=== PATIENT | female | born 1995 ===

== ENCOUNTER → 2017-10-20 | Outpatient (CLI) | payer SELFPAY ==
--- NOTE | 2017-10-20 15:42 | Diagnostic Imaging Report ---
INDICATION: Discharge. FINDINGS: There is an intrauterine gestational sac containing a pole. The crown/rump length measurement is consistent with an approximately 7 week 5 day gestation. The heart rate was recorded at 179 BPM. No definite severiano-gestational sac hemorrhage is seen. In addition, there is a marked abnormal appearance to the endometrial canal. There is significantly heterogeneous mass like echogenicity throughout the endometrium and adjacent to the gestational sac. A small cystic component is present as well. This does raise the question of gestational trophoblastic disease. This is difficult to distinguish from the adjacent myometrium. Adnexal evaluation is without evidence of a discrete adnexal mass. No free fluid is identified. IMPRESSION: There is a single live IUP of approximately 7 weeks 5 days gestational age with an estimated date of confinement sonographically of 06/03/2018. In addition, there is a significant abnormal appearance to the endometrium which is markedly thickened and heterogeneous. This does raise the question of gestational trophoblastic disease, perhaps from a twin . Other etiologies such as choriocarcinoma would be an additional consideration. Beta hCG levels could be obtained for further evaluation. Dictated by: Dictated on workstation # [id number]
== END ==
LOC: RAD 12:58
PROVIDERS: ATTEND Family Medicine
DX: O20.0 Threatened abortion (principal); Z3A.01 Less than 8 weeks gestation of pregnancy
CPT/HCPCS: 76801; 76817

== ENCOUNTER 2017-10-24 15:58 | Emergency (ER) | payer SELFPAY ==
[~2017-10-24] VITALS: Ht 162.6 cm; Wt 68.0 kg
--- OUTSIDE RECORDS SUMMARY | 2017-10-24 16:04 | XMS REPORT ---
Author Author JAHAIRA ALVRAEZ [facility] Address [address] [place] [address] Care Team Providers Care Machine Featheredger And Reducer Name Role Phone FRANDY ALVAREZARDO Unavailable PROBLEMS Unknown Problems ALLERGIES No Known Allergies ENCOUNTERS Encounter Location Date [facility] [address] [id number], [place] [id number] Feb, Dental examination Z01.20 [facility] [address] [id number], [place] [id number] Jan, [facility]01.20 [facility] [address] [id number], [place] [id number] Oct, Dental examination Z01.20 [facility] [address] [id number], [place] [address] Sep, [facility] examination Z01.20 [facility] [address] [id number][place] [phone] Sep, Dental examination Z01.20 [facility] [address] [id number], [place] [id number] Aug, Urine test negative Z32.02 [facility] [address] [address] [id number], [place] [id number] Aug, Dental examination Z01.20 [facility]MA [address] [id number], [place] [address] Aug, Dental examination Z01.20 [facility] [address] [id number] [address] Dec, Acute cystitis with hematuria N30.01 [facility] [address]00565100[place], [place] [address] 15 Dec, 2015 Abnormal urine odor R82.90 and Acute cystitis without hematuria N30.00 [facility] [address] [id number] [address] 27 Nov, 2015 Dysuria R30.0 and Acute cystitis with hematuria N30.01 [facility] [address] [id number], [place] [address] 06 Oct, 2015 Encounter for Depo-Provera contraception Z30.42 [facility] [address] [id number], [place] [address] 13 Jul, 2015 Well woman exam (no gynecological exam) Z00.00 ; Encounter for initial prescription of injectable contraceptive Z30.013 and Encounter for Depo-Provera contraception Z30.42 IMMUNIZATIONS No Known Immunizations SOCIAL HISTORY Never Assessed REASON FOR VISIT Restorative PLAN OF CARE Activity Details Follow Up prn Reason:restorative VITAL SIGNS Height 63 in 2016-11-02 Blood pressure systolic 116 mmHg 2016-11-02 Blood pressure diastolic 76 mmHg 2016-11-02 MEDICATIONS No Known Medications RESULTS No Results PROCEDURES Procedure Date Ordered Result Body Site RESIN COMPOS - 1 SURFACE POSTERIOR Nov 02, 2016 INSTRUCTIONS MEDICATIONS ADMINISTERED No Known Medications MEDICAL (GENERAL) HISTORY Type Description Date Hospitalization History labor and delivery 01/2015
--- OUTSIDE RECORDS SUMMARY | 2017-10-24 16:04 | XMS REPORT ---
Author Author [facility]A [facility]AREZ [facility] Address [address] [place] [address] Care Team Providers Care Lumber Kiln Operator Name Role Phone ALVAREZ, JAHAIRA Unavailable PROBLEMS Unknown Problems ALLERGIES No Known Allergies ENCOUNTERS Encounter Location Date Diagnosis [facility] [address] [facility] [id number] [address] Jul, Contusion of abdominal wall, [facility] [address] [id number], [place] [phone] Feb, [facility] Z01.20 [facility] [address] [id number], [place] [address] Jan, [facility] examination Z01.20 [facility] [address] [id number], [place] [address] Oct, Dental examination Z01.20 [facility] [address] [id number], [place] [phone] Sep, Dental examination Z01.20 [facility] [address] [id number], [place] [phone] Sep, Dental examination Z01.20 [facility] [address] [id number], [place] [id number] Aug, Urine test negative Z32.02 [facility] [address] [address] [id number], [place] [phone] Aug, Dental examination Z01.20 [facility] [address] [id number], [place] [id number] Aug, Dental examination Z01.20 [facility] [place] [address] [facility] [id number], [place] [address] 30 Dec, 2015 Acute cystitis with hematuria N30.01 [facility] [id number] [place] [address] 15 Dec, 2015 Abnormal urine odor R82.90 and Acute cystitis without hematuria N30.00 [facility] [address] [place] [address] Nov, Dysuria R30.0 and Acute cystitis with hematuria N30.01 [facility] [address] [place] [address] 06 Oct, 2015 Encounter for Depo-Provera contraception Z30.42 [facility] [address] [place] [address] Jul, Well woman exam (no gynecological exam) Z00.00 ; Encounter for initial prescription of injectable contraceptive Z30.013 and Encounter for Depo-Provera contraception Z30.42 IMMUNIZATIONS No Known Immunizations SOCIAL HISTORY Never Assessed REASON FOR VISIT restorative PLAN OF CARE Activity Details Follow Up prn Reason:restorative VITAL SIGNS Blood pressure systolic 108 mmHg 2017-02-22 Blood pressure diastolic 68 mmHg 2017-02-22 MEDICATIONS Medication Instructions Dosage Frequency Start Date End Date Duration Status Depo-Provera 150 MG/ML Intramuscular every 3 months 1 ml Jul, Not-Taking RESULTS No Results PROCEDURES Procedure Date Ordered Result Body Site RESIN COMPOS - 2 SURFACES ANTERIOR Feb 22, 2017 INSTRUCTIONS MEDICATIONS ADMINISTERED No Known Medications MEDICAL (GENERAL) HISTORY Type Description Date Hospitalization History labor and delivery 01/2015
--- OUTSIDE RECORDS SUMMARY | 2017-10-24 16:04 | XMS REPORT ---
Author Author JAHAIRA ALVAREZ [facility] Address [address] [place] [address] Care Team Providers Care Switch Crew Supervisor Name Role Phone FRANDY ALVAREZARDO Unavailable PROBLEMS Unknown Problems ALLERGIES No Known Allergies ENCOUNTERS Encounter Location Date Diagnosis [facility] [address] [id number], [place] [id number] Feb, Dental examination Z01.20 [facility] [address] [id number], [place] [phone] Jan, Dental examination Z01.20 [facility] [address] [id number], [place] [id number] Oct, Dental examination Z01.20 [facility] [address] [id number], [place] [id number] Sep, Dental examination Z01.20 [facility] [address] [facility] [id number], [place] [address] Sep, Dental examination Z01.20 [facility] [address] [facility] [id number][place] [id number] Aug, Urine test negative Z32.02 [facility] [address] [address] [id number], [place] [phone] Aug, Dental examination Z01.20 [facility] [address] [id number], [place] [id number] Aug, Dental examination Z01.20 [facility] [address] [id number] [address] Dec, Acute cystitis with hematuria N30.01 [facility] [address]00565100[place], [place] [address] 15 Dec, 2015 Abnormal urine odor R82.90 and Acute cystitis without hematuria N30.[address] [facility] [address] [id number] [address] 27 Nov, 2015 Dysuria R30.0 and Acute cystitis with hematuria N30.01 [facility] [address] [id number], [place] [address] 06 Oct, 2015 Encounter for Depo-Provera contraception Z30.42 [facility] [address]00565100[place], [place] [address] 13 Jul, 2015 Well woman exam (no gynecological exam) Z00.00 ; Encounter for initial prescription of injectable contraceptive Z30.013 and Encounter for Depo-Provera contraception Z30.42 IMMUNIZATIONS No Known Immunizations SOCIAL HISTORY Never Assessed REASON FOR VISIT Restorative PLAN OF CARE Activity Details Follow Up prn Reason:fillings VITAL SIGNS Blood pressure systolic 104 mmHg 2017-01-25 Blood pressure diastolic 71 mmHg 2017-01-25 MEDICATIONS Medication Instructions Dosage Frequency Start Date End Date Duration Status Depo-Provera 150 MG/ML Intramuscular every 3 months 1 ml 13 Jul, 2015 Not-Taking RESULTS No Results PROCEDURES Procedure Date Ordered Result Body Site RESIN COMPOS - 1 SURFACE POSTERIOR Jan 25, 2017 INSTRUCTIONS MEDICATIONS ADMINISTERED No Known Medications MEDICAL (GENERAL) HISTORY Type Description Date Hospitalization History labor and delivery 01/2015
--- OUTSIDE RECORDS SUMMARY | 2017-10-24 16:04 | XMS REPORT ---
Author Author PORSHA FOSTER [facility] Address [address] [place] [address] Care Team Providers Care Ambulatory Technologist Name Role Phone PORSHA FOSTER Unavailable PROBLEMS Unknown Problems ALLERGIES No Known Allergies ENCOUNTERS Encounter Location Date Diagnosis [facility] [address] [facility] [id number], [place] [address] Jul, Contusion of abdominal wall, initial encounter S30.1[facility] [address] [id number], [place] [address] Feb, Dental examination Z01.[address] [facility] [address] [id number], [place] [address] Jan, Dental examination Z01.[address] [facility] [address] [id number], [place] [address] Oct, Dental examination Z01.[address] [facility] [address] [id number], [place] [address] Sep, Dental examination Z01.[address] [facility] [address] [id number], [place] [id number] Sep, Dental examination Z01.[address] [facility] [address] [id number], [place] [id number] Aug, Urine test negative Z32.[address] [facility] [address] [id number], [place] [id number] Aug, Dental examination Z01.20 [facility] [address] [id number], [place] [id number] Aug, Dental examination Z01.20 [facility] [address] [id number], [place] [address] 30 Dec, 2015 Acute cystitis with hematuria N30.01 [facility] [id number] [place] [address] 15 Dec, 2015 Abnormal urine odor R82.90 and Acute cystitis without hematuria N30.00 [facility] [address] [place] [address] Nov, Dysuria R30.0 and Acute cystitis with hematuria N30.01 [facility] [id number] [place] [address] 06 Oct, 2015 Encounter for Depo-Provera contraception Z30.42 [facility] [address] [place] [address] Jul, Well woman exam (no gynecological exam) Z00.00 ; Encounter for initial prescription of injectable contraceptive Z30.013 and Encounter for Depo-Provera contraception Z30.42 IMMUNIZATIONS No Known Immunizations SOCIAL HISTORY Never Assessed REASON FOR VISIT Abdominal pain,having a clear discharge,hit her self in the stomach when moving furniture, MARK daniel, LMP,07/12/2017 PLAN OF CARE Activity Details Follow Up prn Reason: VITAL SIGNS Height 63 in 2017-08-02 Weight 147.6 lbs 2017-08-02 Temperature 98.1 degrees Fahrenheit 2017-08-02 Heart Rate 72 bpm 2017-08-02 Respiratory Rate 16 2017-08-02 BMI 26.14 kg/m2 2017-08-02 Blood pressure systolic 104 mmHg 2017-08-02 Blood pressure diastolic 64 mmHg 2017-08-02 MEDICATIONS Medication Instructions Dosage Frequency Start Date End Date Duration Status Depo-Provera 150 MG/ML Intramuscular every 3 months 1 ml Jul, Not-Taking RESULTS No Results PROCEDURES No Known procedures INSTRUCTIONS MEDICATIONS ADMINISTERED No Known Medications MEDICAL (GENERAL) HISTORY Type Description Date Hospitalization History labor and delivery 01/2015
--- OUTSIDE RECORDS SUMMARY | 2017-10-24 16:05 | XMS REPORT ---
Author LAYLA Gordon [facility] eClinicalWorks Address Unknown Phone Unavailable Care Team Providers Care Private Branch Exchange Installer Name Role Phone LAYLA TAVAREZ CP Unavailable Allergies, Adverse Reactions, Alerts Substance Reaction Event Type N.K.D.A. Info Not Available Non Drug Allergy Problems Problem Type Condition Code Onset Dates Condition Status Assessment Acute cystitis with hematuria N30.01 Active Assessment Dysuria R30.0 Active Medications Medication Code System Code Instructions Start Date End Date Status Dosage Bactrim DS [facility] [address]-75 800-160 MG Orally Twice a day Dec 12, 2015 Dec 15, 2015 1 tablet Depo-Provera [facility] [address]-40 150 MG/ML Intramuscular every 3 months July 29, 2015 1 ml Procedures Procedure Coding System Code Date Office Visit, Est Pt., Level 3 CPT-4 75382 Dec 12, 2015 URINALYSIS, AUTO, W/O SCOPE CPT-4 96311 Dec 12, 2015 Vital Signs Date/Time: Dec 12, 2015 Cardiac Monitoring Heart Rate 82 bpm Weight 136 lbs Height 63 in BMI 24.09 Index Blood Pressure Diastolic 68 mmHg Blood Pressure Systolic 102 mmHg Results Name Result Date Reference Range Unit Abnormality Flag UA LONG DIP (IN HOUSE) ----SARAH Trace 20151212 ----NIT Negative 20151212 ----Exp date 20151212 ----Lot # [id number] ----SG 1.020 20151212 ----KET negative 20151212 ----SUKHWINDER negative 20151212 ----GLU negative 20151212 ----Odor no 20151212 ----pH 6.5 20151212 ----BLO 2+ 20151212 ----URO 1.0 20151212 ----Protein Negative 20151212 ----Lot # [id number] ----Exp date 20151212 ----Clarity clear 20151212 ----Color yellow 20151212 Summary Purpose eClinicalWorks Submission
--- OUTSIDE RECORDS SUMMARY | 2017-10-24 16:05 | XMS REPORT ---
Author Author JAKE GRIJALVA [facility] Address [address] [place] [address] Care Team Providers Care Preventive Medicine Physician Name Role Phone JAKE GRIJALVA Unavailable PROBLEMS Unknown Problems ALLERGIES No Known Allergies ENCOUNTERS Encounter Location Date [facility] [address] [id number], [place] [id number] June, [facility] [address] [place] [address] AVE [id number], [place] [id number] Feb, Dental examination Z01.20 [facility] [address] [id number], [place] [address] Jan, Dental examination Z01.20 [facility] [address] [facility] [address] [id number], [place] [id number] Oct, Dental examination Z01.20 [facility] [address]SH[facility]MA[address] [id number], [place] [address] Sep, Dental examination Z01.20 [facility] [address] [facility] [address] [id number], [place] [id number] Sep, Dental examination Z01.20 [facility] [address] [address] [id number], [place] [id number] Aug, Urine test negative Z32.02 [facility] [address] [address] [id number], [place] [id number] Aug, Dental examination Z01.20 [facility] [address] [id number], [place] [id number] Aug, Dental examination Z01.20 [facility] [address] [facility] [id number], [place] [address] Dec, Acute cystitis with hematuria N30.01 [facility] [address] [id number] [address] 15 Dec, 2015 Abnormal urine odor R82.90 and Acute cystitis without hematuria N30.00 [facility] [address]00565100[place], [place] [address] 27 Nov, 2015 Dysuria R30.0 and Acute cystitis with hematuria N30.01 [facility] [address] [place] [address] 06 Oct, 2015 Encounter for Depo-Provera contraception Z30.42 [facility] [address] [place] [address] 13 Jul, 2015 Well woman exam (no gynecological exam) Z00.00 ; Encounter for initial prescription of injectable contraceptive Z30.013 and Encounter for Depo-Provera contraception Z30.42 IMMUNIZATIONS No Known Immunizations SOCIAL HISTORY Never Assessed REASON FOR VISIT reeval PLAN OF CARE Activity Details Follow Up Restoratives. 3month perio maintenance Reason: VITAL SIGNS Blood pressure systolic 117 mmHg 2016-09-29 Blood pressure diastolic 75 mmHg 2016-09-29 MEDICATIONS Unknown Medications RESULTS No Results PROCEDURES Procedure Date Ordered Result Body Site Dental no charge Sep 29, 2016 INSTRUCTIONS MEDICATIONS ADMINISTERED No Known Medications MEDICAL (GENERAL) HISTORY Type Description Date Hospitalization History labor and delivery 01/2015
--- OUTSIDE RECORDS SUMMARY | 2017-10-24 16:05 | XMS REPORT ---
Author Author [facility]RI[facility] Address [address] [place] [address] Care Team Providers Care Automobile Appraiser Name Role Phone JAKE GRIJALVA Unavailable PROBLEMS Unknown Problems ALLERGIES No Known Allergies ENCOUNTERS Encounter Location Date Diagnosis [facility] [address] [id number], [place] [phone] Feb, Dental examination Z01.20 [facility] [address] [facility] [address] [id number], [place] [id number] Jan, Dental examination Z01.20 [facility] SHARMA[address] [id number], [place] [id number] Oct, Dental examination Z01.20 [facility] [address] [id number], [place] [id number] Sep, Dental examination Z01.20 [facility] [address] [facility] [address] [id number], [place] [id number] Sep, Dental examination Z01.[address] [id number], [place] [id number] Aug, Urine test negative Z32.02 [facility] SH[address] [id number], [place] [id number] Aug, Dental examination Z01.[address] [id number], [place] [id number] Aug, Dental examination Z01.20 [facility] [address] [facility] [id number], [place] [address] 30 Dec, 2015 Acute cystitis with hematuria N30.01 [facility] [address] [id number], [place] [address] 15 Dec, 2015 Abnormal urine odor R82.90 and Acute cystitis without hematuria N30.00 [facility] [address] [facility] [id number], [place] [address] 27 Nov, 2015 Dysuria R30.0 and Acute cystitis with hematuria N30.01 [facility] [address] [id number], [place] [address] 06 Oct, 2015 Encounter for Depo-Provera contraception Z30.42 [facility] [address] [id number], [place] [address] 13 Jul, 2015 Well woman exam (no gynecological exam) Z00.00 ; Encounter for initial prescription of injectable contraceptive Z30.013 and Encounter for Depo-Provera contraception Z30.42 IMMUNIZATIONS No Known Immunizations SOCIAL HISTORY Never Assessed REASON FOR VISIT ramón/prophy PLAN OF CARE Activity Details Follow Up 1.5hr SRP w/o anesthetic Reason: VITAL SIGNS Blood pressure systolic 109 mmHg 2016-08-17 Blood pressure diastolic 68 mmHg 2016-08-17 MEDICATIONS No Known Medications RESULTS No Results PROCEDURES Procedure Date Ordered Result Body Site COMP ORAL EVALUATION - NEW/EST PT August 17, 2016 BITEWINGS - FOUR FILMS August 17, 2016 INSTRUCTIONS MEDICATIONS ADMINISTERED No Known Medications MEDICAL (GENERAL) HISTORY Type Description Date Hospitalization History labor and delivery 01/2015
--- OUTSIDE RECORDS SUMMARY | 2017-10-24 16:05 | XMS REPORT ---
Author Author JAKE GRIJALVA [facility] Address [address] [place] [address] Care Team Providers Care Air Conditioning Unit Tester Name Role Phone JAKE GRIJALVA Unavailable PROBLEMS Unknown Problems ALLERGIES No Known Allergies ENCOUNTERS Encounter Location Date Diagnosis [facility] [address] [id number] [id number] Feb, Dental examination Z01.20 [facility] [address] [facility] [address] [id number] [phone] Jan, Dental examination Z01.20 [facility] [address] [id number] [phone] Oct, [facility]01.[facility] [id number] [id number] Sep, Dental examination Z01.20 [facility] [address] [facility] [address] [id number] [id number] Sep, Dental examination Z01.[address] [id number] [id number] Aug, Urine test negative Z32.02 [facility] [id number][place] [id number] Aug, Dental examination Z01.[address] [id number], [place] [id number] Aug, Dental examination Z01.20 [facility] [address] [facility] [id number] [address] 30 Dec, 2015 Acute cystitis with hematuria N30.01 [facility] [address] [id number], [place] [address] 15 Dec, 2015 Abnormal urine odor R82.90 and Acute cystitis without hematuria N30.00 [facility] [address] [facility] [id number], [place] [address] 27 Nov, 2015 Dysuria R30.0 and Acute cystitis with hematuria N30.01 [facility] [address] [id number], [place] [address] 06 Oct, 2015 Encounter for Depo-Provera contraception Z30.42 [facility] [address] [id number] [address] 13 Jul, 2015 Well woman exam (no gynecological exam) Z00.00 ; Encounter for initial prescription of injectable contraceptive Z30.013 and Encounter for Depo-Provera contraception Z30.42 IMMUNIZATIONS No Known Immunizations SOCIAL HISTORY Never Assessed REASON FOR VISIT SRP PLAN OF CARE Activity Details Follow Up 4-6week re-eval. Restoratives Reason: VITAL SIGNS Blood pressure systolic 101 mmHg 2016-08-19 Blood pressure diastolic 66 mmHg 2016-08-19 MEDICATIONS No Known Medications RESULTS No Results PROCEDURES Procedure Date Ordered Result Body Site Periodontal scaling and root August 19, 2016 Periodontal scaling and root August 19, 2016 Periodontal scaling and root August 19, 2016 Periodontal scaling and root August 19, 2016 INSTRUCTIONS MEDICATIONS ADMINISTERED No Known Medications MEDICAL (GENERAL) HISTORY Type Description Date Hospitalization History labor and delivery 01/2015
--- OUTSIDE RECORDS SUMMARY | 2017-10-24 16:05 | XMS REPORT ---
Author Author KARTHIKEYAN GREEN [facility] e[employer] Address Unknown Phone Unavailable Care Team Providers Care Lumber Marker Name Role Phone KARTHIKEYAN GREEN CP Unavailable Allergies, Adverse Reactions, Alerts Substance Reaction Event Type N.K.D.A. Info Not Available Non Drug Allergy Problems Problem Type Condition Code Onset Dates Condition Status Assessment Acute cystitis without hematuria N30.00 Active Assessment Abnormal urine odor R82.90 Active Medications Medication Code System Code Instructions Start Date End Date Status Dosage Macrobid [facility] [address]-11 100 MG Orally every 12 hrs Dec 31, 2015Dec 1 capsule with food Depo-Provera [facility] [address]-73 150 MG/ML Intramuscular every 3 months July 29, 2015 1 ml Procedures Procedure Coding System Code Date MARSHALL VAG, DNA, DIR PROBE CPT-4 31896 Dec 31, 2015 TRICHOMONAS ASSAY W/OPTIC CPT-4 74679 Dec 31, 2015 URINALYSIS, AUTO, W/O SCOPE CPT-4 53471 Dec 31, 2015 No Charge CPT-4 45329 Dec 31, 2015 URINE CULTURE/COLONY COUNT CPT-4 35776 Dec 31, 2015 Office Visit, Est Pt., Level 3 CPT-4 62162 Dec 31, 2015 Vital Signs Date/Time: Dec 31, 2015 Cardiac Monitoring Heart Rate 88 bpm Weight 135.5 lbs Height 63 in BMI 24.00 Index Blood Pressure Diastolic 76 mmHg Blood Pressure Systolic 110 mmHg Results Name Result Date Reference Range Unit Abnormality Flag UA LONG DIP (IN HOUSE) ----pH 6.5 20151231 ----BLO Trace 20151231 ----Clarity turbid 20151231 ----Color yellow 20151231 ----Odor yes 20151231 ----GLU Negative 20151231 ----SARAH Trace 20151231 ----SUKHWINDER Negative 20151231 ----NIT Positive 20151231 ----KET Negative 20151231 ----Lot # [id number] 20151231 ----SG 1.025 20151231 ----URO 1.0 20151231 ----Exp date 20151231 ----Protein Negative 20151231 BACTERIAL VAGINOSIS (IN HOUSE) ----Exp date 20151231 ----RESULTS Negative 20151231 ----Lot # [id number] 20151231 ----Control + 20151231 GC/CHLAM PROBE (STATE) TRICHOMONAS (IN HOUSE) ----Exp date 20151231 ----Control + 20151231 ----Lot # [id number] 20151231 ----TRICHOMONAS Negative 20151231 CULTURE, GENITAL ----Result 1 Escherichia coli 20151231 A ----Genital Culture, Routine Final report 20151231 A CULTURE, URINE ----Urine Culture, Routine Final report 20151231 A Summary Purpose eClinicalWorks Submission
--- OUTSIDE RECORDS SUMMARY | 2017-10-24 16:05 | XMS REPORT ---
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 Name Role Phone ALVAREZ, JAHAIRA Unavailable PROBLEMS Unknown Problems ALLERGIES No Information ENCOUNTERS Encounter Location Date Diagnosis [facility] [address] [id number] [id number] June, [id number] [phone] Feb, Dental examination Z01.20 [facility] [address] [id number], [place] [phone] Jan, Dental examination Z01.20 [facility] [address] [id number], [place] [phone] Oct, Dental examination Z01.20 [facility] [address] [id number], [place] [phone] Sep, Dental examination Z01.20 [facility] [address] [id number], [place] [id number] Sep, Dental examination Z01.20 [facility] [address] [id number], [place] [phone] Aug, Urine test negative Z32.02 [facility] [address] [id number], [place] [id number] Aug, Dental examination Z01.20 [facility] [address] [id number], [place] [id number] Aug, Dental examination Z01.20 [facility] [address] [facility] [id number] [phone] Dec, Acute cystitis with hematuria N30.01 [facility] [address] [id number] [address] 15 Dec, 2015 Abnormal urine odor R82.90 and Acute cystitis without hematuria N30.00 [facility] [address]65100[place] [address] Nov, Dysuria R30.0 and Acute cystitis with hematuria N30.01 [facility] [address] [place] [address] 06 Oct, 2015 Encounter for Depo-Provera contraception Z30.42 [facility] [address] [place] [address] 13 Jul, 2015 Well woman exam (no gynecological exam) Z00.00 ; Encounter for initial prescription of injectable contraceptive Z30.013 and Encounter for Depo-Provera contraception Z30.42 IMMUNIZATIONS No Known Immunizations SOCIAL HISTORY Never Assessed REASON FOR VISIT Restorative PLAN OF CARE VITAL SIGNS MEDICATIONS Unknown Medications RESULTS No Results PROCEDURES Procedure Date Ordered Result Body Site Billing Notes on claim Oct 13, 2016 INSTRUCTIONS MEDICATIONS ADMINISTERED No Known Medications MEDICAL (GENERAL) HISTORY Type Description Date Hospitalization History labor and delivery 01/2015
[2017-10-24 16:34] LABS: BILIRUBIN,URINE NEGATIVE (NEGATIVE); CLARITY,URINE SLIGHTLY CLOUDY; COLOR,URINE YELLOW; GLUCOSE, URINE (UA) NEGATIVE (NEGATIVE); KETONES,URINE NEGATIVE (NEGATIVE); LEUKOCYTE ESTERASE ,URINE 1+ (NEGATIVE); NITRITE,URINE NEGATIVE (NEGATIVE); PH,URINE 8 (5-9); PROTEIN,URINE NEGATIVE (NEGATIVE); UROBILINOGEN,URINE NORMAL (NORMAL)
[2017-10-24 16:43] LABS: BACTERIA,URINE NEGATIVE /HPF; RBC,URINE >100 /HPF; SQUAMOUS EPITHELIAL CELL,UR RARE /HPF; WBC,URINE RARE /HPF
--- NOTE | 2017-10-24 16:46 | ED GU-Female ---
General Chief Complaint: -Female Stated Complaint: 9 WKS PREG/HEAVY VAG BLEEDING Source: patient, family Exam Limitations: language barrier ([place] Citizen is second language) (JARVIS ANDRADE) History of Present Illness Date Seen by Provider: Oct 24, 2017 Time Seen by Provider: 16:31 Initial Comments Patient presents to the ER and has her friend translating to [place] Citizen for her. She understands and was just does not speak it very fluently. Patient is a presenting with a last menstrual period of 08/04/17 putting her at 11 weeks and 4 days with chief complaint for the past 2 weeks she's been having some intermittent spotting. She went to the clinic at [facility] and saw her doctor and they told her at that time it was okay but it's continued intermittently spot. Now today 2 hours prior to arrival she started having heavy bleeding with clots. She's having no chest pain shortness of breath abdominal pain, spots or double vision. She has no history of problems with her . She is having cramping abdominal pain specialist in the suprapubic region and some dysuria. (JARVIS ANDRADE) Allergies and Home Medications Allergies Coded Allergies: No Known Drug Allergies (Unverified , 10/24/17) Patient Home Medication List Home Medication List Reviewed: Yes (JARVIS ANDRADE) Review of Systems Review of Systems Constitutional: No chills, No diaphoresis EENTM: No ear discharge, No hearing loss Respiratory: No cough, No short of breath Cardiovascular: No chest pain, No palpitations Gastrointestinal: see HPI, abdominal pain; No constipation, No diarrhea, No nausea, No vomiting Genitourinary: see HPI; denies burning, denies discharge; dysuria Musculoskeletal: No back pain, No joint pain Skin: No pruritus, No rash (JARVIS ANDRADE) Past Cedivnc-Eokglg-Gpjjyk Hx Patient Social History Alcohol Use: Denies Use Recreational Drug Use: No Smoking Status: Never a Smoker Recent Foreign Travel: No Contact w/Someone Who Travel: No (JARVIS ANDRADE) Physical Exam Vital Signs Vital Signs - First Documented 10/24/17 16:45 Temp 98.0 Pulse 87 Resp 20 B/P (MAP) 111/80 (90) Pulse Ox 98 O2 Delivery Room Air (BERNOT,KLARISSA) Vital Signs Capillary Refill : (JARVIS ANDRADE) Height, Weight, BMI Height: '" Weight: lbs. oz. kg; BMI Method: General Appearance: WD/WN, no apparent distress HEENT: PERRL/EOMI, pharynx normal Cardiovascular: normal peripheral pulses, regular rate, rhythm Respiratory: chest non-tender, lungs clear, normal breath sounds Gastrointestinal: normal bowel sounds, soft, tenderness (suprapubic) Genital/Rectal: normal genital exam, other (bloody secretions in the vaginal vault and bloody mucus at the cervix with a otherwise parous closed cervix on examination under speculum.) Neurologic/Psychiatric: alert, normal mood/affect, oriented x 3 Skin: normal color, warm/dry (JARVIS ANDRADE) Progress/Results/Core Measures Suspected Sepsis SIRS Temperature: Pulse: Respiratory Rate: Laboratory Tests 10/24/17 16:58: White Blood Count 9.3 Blood Pressure / Mean: Laboratory Tests 10/24/17 16:58: Creatinine 0.80, Platelet Count 289, Total Bilirubin 0.7 (JARVIS ANDRADE) Results/Orders Lab Results (KLARISSA NERI) Vital Signs/I&O (KLARISSA NERI) Vital Signs/I&O Capillary Refill : (JARVIS ANDRADE) Progress Note : Time: 18:13 Progress Note Were still waiting on an ultrasound at this time but care was transferred to Klarissa nurse practitioner and he will see the we'll send results and discuss with her her pending miscarriage and what to expect. (JARVIS ANDRADE) Progress Note : Progress Note I have informed the patient of findings on ultrasound. She was instructed to follow up with OBGYN for close evaluation. Return precautions were given. (KLARISSA NERI) Diagnostic Imaging Diagonstic Imaging: Ultrasound Plain Films/CT/US/NM/MRI: pelvis Comments NAME: [facility] REC#: [id number] PT STATUS: REG ER : 1995 PHYSICIAN: JARVIS ANDRADE MD ADMIT DATE: 10/24/17/ER Signed Date of Exam:10/24/17 US OB<14 WKS SNGLE W/TRANSVAG EXAM: Ultrasound OB less than 14 weeks. DATE: October 24, 2017. INDICATION: 22-year-old female, vaginal bleeding. COMPARISON: October 20, 2017. FINDINGS: Both transabdominal and endovaginal approaches were utilized. There is an intrauterine gestational sac with pole. The crown-rump length measurement would predict estimated age of 8 weeks and 4 days +/-1 week. There is no demonstrated heart rate. This is concerning for intrauterine demise. The right ovary is unremarkable in grayscale appearance. There is blood flow to the right ovary. The left ovary is not well seen. There is no demonstrated adnexal mass. There is no free pelvic fluid. There is thickening of the endometrium. IMPRESSION: 1. Intrauterine gestational sac and pole with pole measurements predicting a gestational age of 8 weeks and 4 days +/-1 week. There is no demonstrated heart rate, concerning for intrauterine demise. 2. Redemonstrated thickening of the endometrium. 3. Unremarkable appearance of the right ovary. 4. The left ovary is not well seen. 5. No free pelvic fluid. Dictated by: Dictated on workstation # [id number] Dict: 10/24/171824 Trans: 10/24/171831 [facility] [id number] Interpreted by: DYLAN JEREZ MD Electronically signed by: DYLAN JEREZ MD 10/24/171831 Reviewed: Reviewed by Me (KLARISSA NERI) Transfer of Care Transfer of Care Time: 18:13 Care transferred to: Klarissa Neri (JARVIS ANDRADE) Departure Impression Primary Impression: Incomplete miscarriage Disposition: 01 HOME, SELF-CARE Condition: Stable/Unchanged Departure-Patient Inst. Decision time for Depature: 18:38 (KLARISSA NERI) Referrals: [facility] (PCP/Family) Primary Care Physician Patient Instructions: Miscarriage (DC) Add. Discharge Instructions: Follow up with [facility] within 3 days for recheck. Call first thing tomorrow morning for an appointment time. You may use ibuprofen and Tylenol as needed for pain control. Return back to the emergency room should your vaginal bleeding become worse or if you develop worsening pain. Mild cramping as expected. All discharge instructions reviewed with patient and/or family. Voiced understanding. JARVIS ANDRADE Oct 24, 2017 16:46 KLARISSA NERI Oct 24, 2017 18:37
[2017-10-24 17:01] LABS: BASOPHILS % (AUTO) 0 % (0-10); EOSINOPHILS # (AUTO) 0.1 10^3/uL (0.0-0.3); EOSINOPHILS % (AUTO) 1 % (0-10); HEMATOCRIT 38 % (35-52); HEMOGLOBIN 13.2 G/DL (11.5-16.0); LYMPHOCYTES # (AUTO) 3.5 X 10^3 (1.0-4.0); LYMPHOCYTES % (AUTO) 38 % (12-44); MEAN CORPUSCULAR HEMOGLOBIN 32 PG (25-34); MEAN CORPUSCULAR HGB CONC 35 G/DL (32-36); MEAN CORPUSCULAR VOLUME 91 FL (80-99); MEAN PLATELET VOLUME 10.3 FL (7.4-10.4); MONOCYTES # (AUTO) 0.8 X 10^3 (0.0-1.0); MONOCYTES % (AUTO) 9 % (0-12); NEUTROPHILS # (AUTO) 4.8 X 10^3 (1.8-7.8); NEUTROPHILS % (AUTO) 52 % (42-75); PLATELET COUNT 289 10^3/uL (130-400); RED BLOOD COUNT 4.17 10^6/uL (4.35-5.85); RED CELL DISTRIBUTION WIDTH 12.6 % (10.0-14.5); WHITE BLOOD COUNT 9.3 10^3/uL (4.3-11.0)
[2017-10-24 17:21] LABS: ALANINE AMINOTRANSFERASE 88 U/L (0-55); ALBUMIN 4.5 GM/DL (3.2-4.5); ALKALINE PHOSPHATASE 82 U/L (40-136); BILIRUBIN,TOTAL 0.7 MG/DL (0.1-1.0); BUN/CREATININE RATIO 15; CALCIUM 9.9 MG/DL (8.5-10.1); CARBON DIOXIDE 20 MMOL/L (21-32); CHLORIDE 105 MMOL/L (98-107); GFR ESTIMATED > 60; GLUCOSE 97 MG/DL (70-105); POTASSIUM 3.8 MMOL/L (3.6-5.0); SODIUM 137 MMOL/L (135-145); TOTAL PROTEIN 7.5 GM/DL (6.4-8.2)
--- NOTE | 2017-10-24 18:31 | Diagnostic Imaging Report ---
EXAM: Ultrasound OB less than 14 weeks. DATE: October 24, 2017. INDICATION: 22-year-old female, vaginal bleeding. COMPARISON: October 20, 2017. FINDINGS: Both transabdominal and endovaginal approaches were utilized. There is an intrauterine gestational sac with pole. The crown-rump length measurement would predict estimated age of 8 weeks and 4 days +/-1 week. There is no demonstrated heart rate. This is concerning for intrauterine demise. The right ovary is unremarkable in grayscale appearance. There is blood flow to the right ovary. The left ovary is not well seen. There is no demonstrated adnexal mass. There is no free pelvic fluid. There is thickening of the endometrium. IMPRESSION: 1. Intrauterine gestational sac and pole with pole measurements predicting a gestational age of 8 weeks and 4 days +/-1 week. There is no demonstrated heart rate, concerning for intrauterine demise. 2. Redemonstrated thickening of the endometrium. 3. Unremarkable appearance of the right ovary. 4. The left ovary is not well seen. 5. No free pelvic fluid. Dictated by: Dictated on workstation # [id number]
[2017-10-24 19:22] VITALS: BP 111/80
== END 2017-10-24 19:23 | disposition home or self-care (01) ==
LOC: EDUNIT# 15:58 → ER 16:01
DX: O03.4 Incomplete spontaneous abortion without complication (principal); Z3A.11 11 weeks gestation of pregnancy
CPT/HCPCS: 36415; 76801; 76817; 80053; 81000; 84702; 84703; 85025